=== PATIENT | male | born 1960 | race Caucasian/White ===

== ENCOUNTER 2017-04-22 21:30 | Emergency (ER) | payer BC ==
[~2017-04-22] VITALS: Ht 177.8 cm; Wt 91.2 kg
[2017-04-22 22:44] VITALS: Ht 177.8 cm; Wt 91.2 kg
[2017-04-22 23:59] VITALS: BP 114/84
== END 2017-04-22 23:59 | disposition home or self-care (01) ==
LOC: ED 21:30
DX: S61.451A Open bite of right hand, initial encounter (principal); Z91.018 Allergy to other foods; W54.0XXA Bitten by dog, initial encounter; Y93.89 Activity, other specified; Y92.89 Other specified places as the place of occurrence of the external cause; Y99.8 Other external cause status